=== PATIENT | male | born 1980 ===

== ENCOUNTER 2020-08-15 06:00 | Day surgery (SDC) | payer OTHER ==
[2020-08-15] MEDS ORDERED: PERCOCET 5-3251 EACH PO (08:41)
[2020-08-15] MEDS ORDERED: COLACE100 MG PO (08:41)
== END 2020-08-15 13:00 | disposition home or self-care (01) ==
LOC: CIR.AMB 06:00
PROVIDERS: ATTEND Surgery
DX: K60.3 Anal fistula (principal); K60.1 Chronic anal fissure; Z20.822 Contact with and (suspected) exposure to COVID-19

== ENCOUNTER 2020-12-12 08:30 | Day surgery (SDC) | payer OTHER ==
[~2020-12-12 08:30] MED LIST: COLACE100 MG PO; PERCOCET 5-3251 EACH PO
[2020-12-12] MEDS ORDERED: PERCOCET 5-3251 EACH PO (14:09)
[2020-12-12] MEDS ORDERED: COLACE100 MG PO (14:11)
== END 2020-12-12 19:40 | disposition home or self-care (01) ==
LOC: CIR.AMB 08:30
PROVIDERS: ATTEND Surgery
DX: K60.3 Anal fistula (principal); Z20.822 Contact with and (suspected) exposure to COVID-19